=== PATIENT | female | born 1940 | race Caucasian/White ===

== ENCOUNTER 2020-11-21 14:33 | Emergency (ER) | payer MEDICARE ==
[~2020-11-21 14:33] MED LIST: AMARYL 2MG TABLE2 MG PO; ASPIRIN CHEWABL81 MG PO; COZAAR100 MG PO; ELIQUIS2.5 MG PO; HCTZ25 MG PO; LASIX40 MG PO; LEXAPRO20 MG PO; LIPITOR20 MG PO; LOPRESSOR50 MG PO; NORVASC 10MG TA10 MG PO; OMEPRAZOLE 20MG20 MG PO; TRAZODONE 50MG50 MG PO; XANAX0.5 M1 PO
[2020-11-21 17:07] LABS: BASOPHIL 0.3 % (0-2); EOSINOPHIL 0.4 % (0-7); HCT 39.6 % (37.0-47.0); LYMPHOCYTE 29.8 % (15-48); MCH 28.3 pg (25.0-31.0); MCHC 30.3 g/dL (32.0-36.0); MCV 93.4 fL (78.0-100.0); MONOCYTE 7.5 % (0-12); MPV 10.3 fL (6.0-9.5); NEUTROPHIL 61.5 % (41-80); NRBC 0; PLT 254 K/uL (150-400); RBC 4.24 M/uL (4.20-5.40); RDW 13.2 % (11.5-14.0); WBC 12.3 K/uL (4.0-10.5)
[2020-11-21 17:10] LABS: INR 1.19 (0.9-1.2); PROTHROMBIN TIME 14.5 SECONDS (11.8-13.4)
[2020-11-21 17:19] LABS: ALBUMIN 3.3 g/dL (3.4-5.0); BILIRUBIN - TOTAL 0.2 mg/dL (0.2-1.0); BUN/CREAT RATIO (CALC) 18.7 RATIO; CREATININE 0.75 mg/dL (0.51-0.95); GLOBULIN (CALCULATION) 3.4 g/dL; POTASSIUM 4.2 mmol/L (3.5-5.1); TOTAL PROTEIN 6.7 g/dL (6.4-8.2)
== END 2020-11-21 18:20 | disposition home or self-care (01) ==
LOC: FER 14:33
PROVIDERS: Emergency Medicine
DX: S80.11XA Contusion of right lower leg, initial encounter (principal); I48.91 Unspecified atrial fibrillation; E11.9 Type 2 diabetes mellitus without complications; I10 Essential (primary) hypertension; Z86.73 Personal history of transient ischemic attack (TIA), and cerebral infarction without residual deficits; Z95.0 Presence of cardiac pacemaker; W18.40XA Slipping, tripping and stumbling without falling, unspecified, initial encounter; Y92.009 Unspecified place in unspecified non-institutional (private) residence as the place of occurrence of the external cause
CPT/HCPCS: 36415; 73700; 80053; 85025; 85610

== ENCOUNTER 2020-11-26 18:55 | Emergency (ER) | payer MEDICARE ==
[2020-11-26 22:20] LABS: BASOPHIL 0.2 % (0-2); EOSINOPHIL 0.4 % (0-7); HCT 33.3 % (37.0-47.0); HGB 10.2 g/dl (12.5-16.0); LYMPHOCYTE 29.2 % (15-48); MCH 28.7 pg (25.0-31.0); MCHC 30.6 g/dL (32.0-36.0); MCV 93.8 fL (78.0-100.0); MPV 10.6 fL (6.0-9.5); NEUTROPHIL 60.8 % (41-80); NRBC 0; PLT 265 K/uL (150-400); RBC 3.55 M/uL (4.20-5.40); RDW 13.7 % (11.5-14.0); WBC 10.7 K/uL (4.0-10.5)
[2020-11-26 22:27] LABS: BUN/CREAT RATIO (CALC) 17.2 RATIO; CREATININE 0.87 mg/dL (0.51-0.95); POTASSIUM 4.3 mmol/L (3.5-5.1)
[2020-11-26] MEDS ORDERED: VIBRAMYCIN100 MG PO (23:24)
[2020-11-26] MEDS ORDERED: NORCO 5-325 TA1 EACH PO (23:24)
== END 2020-11-27 02:33 | disposition home or self-care (01) ==
LOC: FER 18:55
PROVIDERS: Internal Medicine
DX: L03.115 Cellulitis of right lower limb (principal); S80.11XD Contusion of right lower leg, subsequent encounter; I10 Essential (primary) hypertension; E11.9 Type 2 diabetes mellitus without complications; I48.91 Unspecified atrial fibrillation; Z86.73 Personal history of transient ischemic attack (TIA), and cerebral infarction without residual deficits; W19.XXXD Unspecified fall, subsequent encounter; Y92.009 Unspecified place in unspecified non-institutional (private) residence as the place of occurrence of the external cause
CPT/HCPCS: 36415; 73700; 80048; 85025; J0696

== ENCOUNTER 2021-02-01 15:47 | Emergency (ER) | payer MEDICARE ==
[~2021-02-01 15:47] MED LIST changes: +NORCO 5-325 TA1 EACH PO; +VIBRAMYCIN100 MG PO
== END 2021-02-01 17:32 | disposition home or self-care (01) ==
LOC: FER 15:47
DX: R04.0 Epistaxis (principal); I10 Essential (primary) hypertension; E11.9 Type 2 diabetes mellitus without complications; Z86.73 Personal history of transient ischemic attack (TIA), and cerebral infarction without residual deficits; Z79.01 Long term (current) use of anticoagulants; Z79.84 Long term (current) use of oral hypoglycemic drugs; Z79.899 Other long term (current) drug therapy
CPT/HCPCS: 99283

== ENCOUNTER 2021-02-13 13:24 | Emergency (ER) | payer MEDICARE | END 2021-02-13 16:02 | disposition home or self-care (01) | LOC: FER 13:24 | DX: R04.0 Epistaxis (principal); E11.9 Type 2 diabetes mellitus without complications; I48.91 Unspecified atrial fibrillation; I10 Essential (primary) hypertension; Z79.01 Long term (current) use of anticoagulants | CPT/HCPCS: 99283 ==

== ENCOUNTER 2021-09-11 14:04 | Emergency (ER) | payer MEDICARE ==
[2021-09-11] MEDS ORDERED: NORCO 5-325 TA1 EACH PO (15:55)
== END 2021-09-11 16:05 | disposition home or self-care (01) ==
LOC: FER 14:04
DX: M54.50 Low back pain, unspecified (principal); M25.552 Pain in left hip; M79.652 Pain in left thigh; E11.9 Type 2 diabetes mellitus without complications; E78.5 Hyperlipidemia, unspecified; I48.91 Unspecified atrial fibrillation; Z86.73 Personal history of transient ischemic attack (TIA), and cerebral infarction without residual deficits; Z79.01 Long term (current) use of anticoagulants; Z79.84 Long term (current) use of oral hypoglycemic drugs; Z79.899 Other long term (current) drug therapy; W18.2XXA Fall in (into) shower or empty bathtub, initial encounter; Y92.009 Unspecified place in unspecified non-institutional (private) residence as the place of occurrence of the external cause
CPT/HCPCS: 72131; 72192; 73552